=== PATIENT | male | born 1955 | race Caucasian/White ===

== ENCOUNTER 2016-09-11 09:36 | Day surgery (SDC) | payer MEDICARE, OTHER ==
[~2016-09-11] VITALS: Ht 165.1 cm; Wt 90.7 kg
[~2016-09-11 09:36] MED LIST: AMLO1CAP2 PO; ASPI-1035 PO; CINA30 PO; CLOP75TA33 PO; HYDR25TA PO; INSULIN PUMP SUBCUT; LOSA100T14 PO; MULT-1146 PO; SEVE800T8 PO; SIMV10TA6 PO; SODI650T PO; [UNRECOGNIZED DRUG - OTHER] PO
[2016-09-11] MEDS ORDERED: PARI1CAP PO (10:47)
[2016-09-11] MEDS ORDERED: GLIM2TAB2 PO (10:47)
[2016-09-11] MEDS ORDERED: FENTANYL CITRATE/PF 50MCG/ML 2ML VIAL ONE (11:50)
[2016-09-11] MEDS ORDERED: MIDAZOLAM HCL 2 MG/2 ML VIAL ONE (11:50)
[2016-09-11] MEDS ORDERED: LIDOCAINE HCL 1% 20ML VIAL (Pyxis) INJ ONE (11:51)
[2016-09-11] MEDS ORDERED: IOHEXOL-300 100 ML BOTTLE ONE (11:52)
== END 2016-09-11 17:15 | disposition home or self-care (01) ==
LOC: CCL 09:36
PROVIDERS: ATTEND Specialist
DX: I25.10 Atherosclerotic heart disease of native coronary artery without angina pectoris (principal); I35.0 Nonrheumatic aortic (valve) stenosis; I12.0 Hypertensive chronic kidney disease with stage 5 chronic kidney disease or end stage renal disease; N18.9 Chronic kidney disease, unspecified; E11.9 Type 2 diabetes mellitus without complications; E78.5 Hyperlipidemia, unspecified; I21.3 ST elevation (STEMI) myocardial infarction of unspecified site
CPT/HCPCS: 82962; 93458; C1760; C1769; C1887; C1893; J1644; J2250; J3010; J3490; Q9967

== ENCOUNTER 2017-07-16 06:33 | Day surgery (SDC) | payer MEDICARE, OTHER ==
[~2017-07-16] VITALS: Ht 167.6 cm; Wt 81.6 kg
[~2017-07-16 06:33] MED LIST changes: -ASPI-1035 PO; +ASPI-1159 PO; +GLIM2TAB2 PO; +PARI1CAP PO
[2017-07-16] MEDS ORDERED: IODIXANOL 320MG/ML 100 ML BOTTLE IV ONE (08:31)
[2017-07-16] MEDS ORDERED: MIDAZOLAM HCL 2 MG/2 ML VIAL ONE (08:31)
[2017-07-16] MEDS ORDERED: FENTANYL CITRATE/PF 50MCG/ML 2ML VIAL ONE (08:31)
[2017-07-16] MEDS ORDERED: LIDOCAINE HCL 1% 20ML VIAL (Pyxis) INJ ONE (08:32)
[2017-07-16] MEDS ORDERED: NUT.237L82 PO (08:46)
[2017-07-16] MEDS ORDERED: SIME125C PO (08:46)
[2017-07-16] MEDS ORDERED: HYDR100T26 PO (08:46)
[2017-07-16] MEDS ORDERED: AMIO100T4 PO (08:46)
[2017-07-16] MEDS ORDERED: SUCR1TAB30 PO (08:46)
[2017-07-16] MEDS ORDERED: FURO80TA3 PO (08:46)
[2017-07-16] MEDS ORDERED: LIRA0.6P2 SUBCUT (08:46)
[2017-07-16] MEDS ORDERED: MULT1TAB63 PO (08:46)
[2017-07-16] MEDS ORDERED: PANT40TA4 PO (08:46)
[2017-07-16] MEDS ORDERED: ATROPINE SULFATE 1MG/10ML SYR IV PRN (09:30)
[2017-07-16] MEDS ORDERED: ACETAMINOPHEN 325MG TABLET PO PRN (09:30)
[2017-07-16] MEDS ORDERED: ONDANSETRON HCL 4MG/2ML VIAL IV PRN (09:30)
[2017-07-16] MEDS ORDERED: MORPHINE SULFATE 4 MG/ML CPJ (NOT FOR IM USE) IV PRN (09:45)
[2017-07-16] MEDS ORDERED: NITROGLYCERIN 50MCG/ML 10ML VIAL (CATH LAB) IV ONE (13:52)
[2017-07-16] MEDS ORDERED: NICARDIPINE 100MCG/ML 10ML VIAL (CATH LAB) IV ONE (13:52)
[2017-07-16] MEDS ORDERED: HEPARIN SODIUM 1,000 UNIT/1ML VIAL IV ONE (13:52)
== END 2017-07-16 15:15 | disposition home or self-care (01) ==
LOC: CCL 06:33
PROVIDERS: ATTEND Specialist
DX: I25.810 Atherosclerosis of coronary artery bypass graft(s) without angina pectoris (principal); Z95.2 Presence of prosthetic heart valve; Z95.1 Presence of aortocoronary bypass graft; I47.2 Ventricular tachycardia
CPT/HCPCS: 36415; 82962; 84132; 93455; 99152; 99153; C1760; C1769; C1887; C1893; J1644; J2250; J3010; J3490; Q9967

== ENCOUNTER 2018-04-22 23:00 | Inpatient (IN) | payer MEDICARE, OTHER ==
[~2018-04-22] VITALS: Ht 167.6 cm; Wt 64.5 kg
[2018-04-22 23:00] VITALS: BP 155/79
[~2018-04-22 23:00] MED LIST changes: +AMIO100T4 PO; -CINA30 PO; +FURO80TA3 PO; +MULT1TAB63 PO; +NUT.237L82 PO; +PANT40TA4 PO; -PARI1CAP PO; +SIME125C PO; +SUCR1TAB30 PO
[2018-04-22 23:10] VITALS: BP 155/79
[2018-04-23] MEDS ORDERED: CEFTRIAXONE 2 G PREMIX 50 ML IV SCH (00:30)
[2018-04-23] MEDS ORDERED: ENOXAPARIN 30MG/0.3ML SYR SUBCUT SCH (00:30)
[2018-04-23] MEDS ORDERED: IPRATROPIUM/ALBUTEROL 0.5-3(2.5)MG/3ML NEB HHN PRN ×2 (00:30)
[2018-04-23] MEDS ORDERED: GUAIFENESIN 200MG/10ML SUGAR FREE UDC PO PRN (00:30)
[2018-04-23] MEDS ORDERED: ONDANSETRON HCL 4MG/2ML INJ IV PRN (00:30)
[2018-04-23] MEDS ORDERED: ACETAMINOPHEN 325MG TABLET PO PRN (00:30)
[2018-04-23] MEDS ORDERED: DEXTROSE 50% WATER 50ML SYRINGE IV PRN (00:30)
[2018-04-23] MEDS ORDERED: METRONIDAZOLE 500MG TABLET PO SCH (01:40)
[2018-04-23] MEDS ORDERED: SODIUM CHLORIDE 0.9% 1,000 ML IV SCH (01:50)
[2018-04-23] MEDS ORDERED: CEFTRIAXONE 2 G in SODIUM CHLORIDE 0.9% 50 ML IV SCH (03:00)
[2018-04-23] MEDS: METOCLOPRAMIDE HCL 10MG/2ML VIAL IV SCH ×3 (05:53→18:14)
[2018-04-23] MEDS: BLOOD SUGAR DIAGNOSTIC STRIP TEST SCH ×4 (05:55→21:00)
[2018-04-23 07:28] LABS: HEMOGLOBIN. 10.3 g/dL (14.0-18.0); MEAN CORPUSCULAR VOLUME 93.3 fL (80.0-94.0); MEAN PLATELET VOLUME 8.2 fl (7.4-10.4); PLATELET 167 x1000/uL (130-400); RED BLOOD CELL COUNT 3.43 mill/uL (4.7-6.1); RED CELL DISTRIBUTION WIDTH 17.7 % (11.6-14.6)
[2018-04-23] MEDS: IPRATROPIUM/ALBUTEROL 0.5-3(2.5)MG/3ML NEB HHN SCH ×3 (07:33→21:34)
[2018-04-23 07:40] LABS: CHLORIDE 101 mEq/L (98-107)
[2018-04-23 08:00] VITALS: BP 156/78
[2018-04-23] MEDS: SEVELAMER CARBONATE 800 MG TABLET PO SCH ×3 (08:59→18:13)
[2018-04-23] MEDS: FOLIC ACID/VITAMIN B COMP W-C TABLET PO SCH (08:59)
[2018-04-23] MEDS: PANTOPRAZOLE SODIUM 40 MG/VIAL IV SCH (08:59)
[2018-04-23] MEDS: CLOPIDOGREL 75MG TABLET PO SCH (09:00)
[2018-04-23] MEDS: ASPIRIN 81MG TABLET PO SCH (09:00)
[2018-04-23] MEDS ORDERED: AMLODIPINE 5MG TABLET PO SCH (09:00)
[2018-04-23] MEDS: INSULIN LISPRO 100 UNITS/ML SUBCUT SCH ×4 (09:00→21:00)
[2018-04-23] MEDS: METRONIDAZOLE 500MG TABLET PO SCH (09:01)
[2018-04-23] MEDS: ENOXAPARIN 30MG/0.3ML SYR SUBCUT SCH (09:42)
[2018-04-23 13:50] LABS: PLATELET ESTIMATE NORMAL
[2018-04-23 16:33] LABS: TOTAL IRON BINDING CAPACITY 175 ug/dL (250-450)
[2018-04-23] MEDS: DOCUSATE SODIUM 100MG CAPSULE PO SCH (18:13)
[2018-04-23] MEDS: CINACALCET HCL 30MG TABLET PO SCH (18:13)
[2018-04-23] MEDS ORDERED: BISACODYL 5MG TABLET PO PRN (18:45)
[2018-04-23 20:00] VITALS: BP 153/78
[2018-04-23 20:48] LABS: FOLIC ACID (FOLATE) SERUM >20 ng/mL ng/mL (>5.38)
[2018-04-23 20:50] LABS: FERRITIN 1095 ng/mL (22-322)
[2018-04-23 20:59] LABS: VITAMIN B12 SERUM 1798 pg/mL (211-911)
[2018-04-23] MEDS: AMLODIPINE 5MG TABLET PO SCH (21:52)
[2018-04-24] MEDS: POLYETHYLENE GLYCOL 3350 (17GM) 1 DOSE PACK PO SCH ×2 (00:01→20:24)
[2018-04-24] MEDS: CEFTRIAXONE 2 G in DEXTROSE 5% WATER 50 ML IV SCH ×2 (00:01→20:25)
[2018-04-24] MEDS: ATORVASTATIN CALCIUM 10MG TABLET PO SCH ×2 (00:02→20:24)
[2018-04-24] MEDS: METOCLOPRAMIDE HCL 10MG/2ML VIAL IV SCH ×5 (00:03→20:24)
[2018-04-24] MEDS: METRONIDAZOLE 500MG TABLET PO SCH ×3 (00:03→20:24)
[2018-04-24] MEDS: IPRATROPIUM/ALBUTEROL 0.5-3(2.5)MG/3ML NEB HHN SCH ×4 (02:26→21:04)
[2018-04-24] MEDS: BLOOD SUGAR DIAGNOSTIC STRIP TEST SCH ×4 (06:57→20:34)
[2018-04-24 08:00] VITALS: BP 152/48
[2018-04-24] MEDS ORDERED: ASCORBIC ACID 250 MG TABLET PO SCH (09:00)
[2018-04-24] MEDS: ENOXAPARIN 30MG/0.3ML SYR SUBCUT SCH (09:35)
[2018-04-24] MEDS: SEVELAMER CARBONATE 800 MG TABLET PO SCH ×3 (09:35→17:28)
[2018-04-24] MEDS: ZINC SULFATE 220 MG ( 50 ) CAPSULE PO SCH (09:36)
[2018-04-24] MEDS: CLOPIDOGREL 75MG TABLET PO SCH (09:36)
[2018-04-24] MEDS: PANTOPRAZOLE SODIUM 40 MG/VIAL IV SCH (09:36)
[2018-04-24] MEDS: FOLIC ACID/VITAMIN B COMP W-C TABLET PO SCH (09:36)
[2018-04-24] MEDS: DOCUSATE SODIUM 100MG CAPSULE PO SCH ×2 (09:36→17:29)
[2018-04-24] MEDS: ASPIRIN 81MG TABLET PO SCH (09:36)
[2018-04-24] MEDS: FUROSEMIDE 80MG TABLET PO SCH (09:37)
[2018-04-24] MEDS: AMLODIPINE 5MG TABLET PO SCH ×2 (09:37→20:24)
[2018-04-24] MEDS: CINACALCET HCL 30MG TABLET PO SCH (17:29)
[2018-04-24] MEDS: LACTULOSE 20G/30ML UDC PO SCH (17:29)
[2018-04-24 20:00] VITALS: BP 133/68
[2018-04-24] MEDS ORDERED: EPOETIN ALFA 4000UNITS/ML VIAL SUBCUT SCH (21:00)
[2018-04-25] MEDS: IPRATROPIUM/ALBUTEROL 0.5-3(2.5)MG/3ML NEB HHN SCH ×2 (02:31→20:53)
[2018-04-25] MEDS: METOCLOPRAMIDE HCL 10MG/2ML VIAL IV SCH ×4 (05:46→22:52)
[2018-04-25] MEDS: BLOOD SUGAR DIAGNOSTIC STRIP TEST SCH ×4 (06:21→21:00)
[2018-04-25 08:00] VITALS: BP 165/80
[2018-04-25] MEDS: SEVELAMER CARBONATE 800 MG TABLET PO SCH ×3 (09:14→16:44)
[2018-04-25] MEDS: LACTULOSE 20G/30ML UDC PO SCH (09:14)
[2018-04-25] MEDS: PANTOPRAZOLE SODIUM 40 MG/VIAL IV SCH (09:14)
[2018-04-25] MEDS: ASPIRIN 81MG TABLET PO SCH (09:15)
[2018-04-25] MEDS: FUROSEMIDE 80MG TABLET PO SCH (09:15)
[2018-04-25] MEDS: DOCUSATE SODIUM 100MG CAPSULE PO SCH ×2 (09:15→16:44)
[2018-04-25] MEDS: AMLODIPINE 5MG TABLET PO SCH ×2 (09:15→22:53)
[2018-04-25] MEDS: FOLIC ACID/VITAMIN B COMP W-C TABLET PO SCH (09:15)
[2018-04-25] MEDS: ENOXAPARIN 30MG/0.3ML SYR SUBCUT SCH (09:15)
[2018-04-25] MEDS: CLOPIDOGREL 75MG TABLET PO SCH (09:15)
[2018-04-25] MEDS: ZINC SULFATE 220 MG ( 50 ) CAPSULE PO SCH (09:15)
[2018-04-25] MEDS: CINACALCET HCL 30MG TABLET PO SCH (16:44)
[2018-04-25 20:00] VITALS: BP 120/67
[2018-04-25] MEDS: POLYETHYLENE GLYCOL 3350 (17GM) 1 DOSE PACK PO SCH (21:00)
[2018-04-25] MEDS: CEFTRIAXONE 2 G in DEXTROSE 5% WATER 50 ML IV SCH (22:52)
[2018-04-25] MEDS: ATORVASTATIN CALCIUM 10MG TABLET PO SCH (22:53)
[2018-04-26] MEDS: IPRATROPIUM/ALBUTEROL 0.5-3(2.5)MG/3ML NEB HHN SCH ×4 (01:50→21:00)
[2018-04-26] MEDS: BLOOD SUGAR DIAGNOSTIC STRIP TEST SCH ×4 (05:57→21:00)
[2018-04-26] MEDS: METOCLOPRAMIDE HCL 10MG/2ML VIAL IV SCH ×4 (05:58→23:55)
[2018-04-26 07:03] LABS: HEMATOCRIT. 31.2 % (42.0-52.0); HEMOGLOBIN. 10.1 g/dL (14.0-18.0); MEAN CORPUSCULAR HEMOGLOBIN 30.2 pg (28.0-32.0); MEAN CORPUSCULAR VOLUME 93.2 fL (80.0-94.0); MEAN PLATELET VOLUME 8.2 fl (7.4-10.4); PLATELET 191 x1000/uL (130-400); RED BLOOD CELL COUNT 3.35 mill/uL (4.7-6.1); RED CELL DISTRIBUTION WIDTH 17.8 % (11.6-14.6)
[2018-04-26 08:09] VITALS: BP 147/69
[2018-04-26] MEDS: LACTULOSE 20G/30ML UDC PO SCH (09:00)
[2018-04-26] MEDS: ZINC SULFATE 220 MG ( 50 ) CAPSULE PO SCH (09:14)
[2018-04-26] MEDS: ASPIRIN 81MG TABLET PO SCH (09:14)
[2018-04-26] MEDS: DOCUSATE SODIUM 100MG CAPSULE PO SCH ×2 (09:14→17:18)
[2018-04-26] MEDS: CLOPIDOGREL 75MG TABLET PO SCH (09:14)
[2018-04-26] MEDS: SEVELAMER CARBONATE 800 MG TABLET PO SCH ×3 (09:14→17:00)
[2018-04-26] MEDS: FOLIC ACID/VITAMIN B COMP W-C TABLET PO SCH (09:14)
[2018-04-26] MEDS: ENOXAPARIN 30MG/0.3ML SYR SUBCUT SCH (09:14)
[2018-04-26] MEDS: PANTOPRAZOLE SODIUM 40 MG/VIAL IV SCH (09:14)
[2018-04-26] MEDS: AMLODIPINE 5MG TABLET PO SCH ×2 (09:15→21:00)
[2018-04-26 11:09] LABS: PLATELET ESTIMATE NORMAL
[2018-04-26] MEDS: CINACALCET HCL 30MG TABLET PO SCH (17:18)
[2018-04-26 20:00] VITALS: BP 133/55
[2018-04-26] MEDS ORDERED: ZOLPIDEM TARTRATE 5MG TABLET PO PRN (21:00)
[2018-04-26] MEDS: POLYETHYLENE GLYCOL 3350 (17GM) 1 DOSE PACK PO SCH (21:00)
[2018-04-26] MEDS: CEFTRIAXONE 2 G in DEXTROSE 5% WATER 50 ML IV SCH (23:56)
[2018-04-26] MEDS: ATORVASTATIN CALCIUM 10MG TABLET PO SCH (23:56)
[2018-04-27] MEDS: BLOOD SUGAR DIAGNOSTIC STRIP TEST SCH ×4 (07:06→20:59)
[2018-04-27] MEDS: METOCLOPRAMIDE HCL 10MG/2ML VIAL IV SCH ×4 (07:06→20:55)
[2018-04-27 08:00] VITALS: BP 131/68
[2018-04-27] MEDS: ZINC SULFATE 220 MG ( 50 ) CAPSULE PO SCH (08:45)
[2018-04-27] MEDS: CLOPIDOGREL 75MG TABLET PO SCH (08:45)
[2018-04-27] MEDS: DOCUSATE SODIUM 100MG CAPSULE PO SCH ×2 (08:45→16:10)
[2018-04-27] MEDS: FOLIC ACID/VITAMIN B COMP W-C TABLET PO SCH (08:45)
[2018-04-27] MEDS: FUROSEMIDE 80MG TABLET PO SCH (08:45)
[2018-04-27] MEDS: ASPIRIN 81MG TABLET PO SCH (08:45)
[2018-04-27] MEDS: ENOXAPARIN 30MG/0.3ML SYR SUBCUT SCH (08:46)
[2018-04-27] MEDS: AMLODIPINE 5MG TABLET PO SCH ×2 (08:46→20:56)
[2018-04-27] MEDS: FAMOTIDINE 20MG TABLET PO SCH (08:46)
[2018-04-27] MEDS: LACTULOSE 20G/30ML UDC PO SCH (09:00)
[2018-04-27] MEDS: IPRATROPIUM/ALBUTEROL 0.5-3(2.5)MG/3ML NEB HHN SCH ×4 (09:49→21:30)
[2018-04-27 13:42] LABS: HEMOGLOBIN. 10.2 g/dL (14.0-18.0); MEAN CORPUSCULAR HEMOGLOBIN 30.4 pg (28.0-32.0); MEAN CORPUSCULAR VOLUME 92.6 fL (80.0-94.0); PLATELET 192 x1000/uL (130-400); RED BLOOD CELL COUNT 3.35 mill/uL (4.7-6.1); RED CELL DISTRIBUTION WIDTH 17.7 % (11.6-14.6)
[2018-04-27 14:03] LABS: PLATELET ESTIMATE NORMAL
[2018-04-27] MEDS: CINACALCET HCL 30MG TABLET PO SCH (16:10)
[2018-04-27 20:00] VITALS: BP 137/68
[2018-04-27] MEDS: ATORVASTATIN CALCIUM 10MG TABLET PO SCH (20:55)
[2018-04-27] MEDS: CEFTRIAXONE 2 G in DEXTROSE 5% WATER 50 ML IV SCH (20:55)
[2018-04-27] MEDS: POLYETHYLENE GLYCOL 3350 (17GM) 1 DOSE PACK PO SCH (20:56)
[2018-04-28] MEDS: IPRATROPIUM/ALBUTEROL 0.5-3(2.5)MG/3ML NEB HHN SCH ×2 (02:05→10:05)
[2018-04-28] MEDS: METOCLOPRAMIDE HCL 10MG/2ML VIAL IV SCH ×2 (05:57→11:10)
[2018-04-28] MEDS: BLOOD SUGAR DIAGNOSTIC STRIP TEST SCH ×4 (05:57→21:00)
[2018-04-28 07:05] LABS: PHOSPHORUS 4.7 mg/dL (2.5-4.9)
[2018-04-28 08:32] VITALS: BP 116/65
[2018-04-28] MEDS: ZINC SULFATE 220 MG ( 50 ) CAPSULE PO SCH (08:42)
[2018-04-28] MEDS: FAMOTIDINE 20MG TABLET PO SCH (08:42)
[2018-04-28] MEDS: CLOPIDOGREL 75MG TABLET PO SCH (08:42)
[2018-04-28] MEDS: ASPIRIN 81MG TABLET PO SCH (08:43)
[2018-04-28] MEDS: DOCUSATE SODIUM 100MG CAPSULE PO SCH ×2 (08:43→16:52)
[2018-04-28] MEDS: FOLIC ACID/VITAMIN B COMP W-C TABLET PO SCH (08:43)
[2018-04-28] MEDS: AMLODIPINE 5MG TABLET PO SCH ×2 (08:43→23:28)
[2018-04-28] MEDS: ENOXAPARIN 30MG/0.3ML SYR SUBCUT SCH (08:45)
[2018-04-28] MEDS: LACTULOSE 20G/30ML UDC PO SCH (08:48)
[2018-04-28] MEDS: MEGESTROL ACETATE 400 MG/10 ML UDC PO SCH (13:56)
[2018-04-28 15:13] LABS: HEMATOCRIT. 29.6 % (42.0-52.0); HEMOGLOBIN. 9.6 g/dL (14.0-18.0); MEAN CORPUSCULAR HEMOGLOBIN 30.2 pg (28.0-32.0); MEAN CORPUSCULAR VOLUME 92.7 fL (80.0-94.0); MEAN PLATELET VOLUME 8.2 fl (7.4-10.4); PLATELET 166 x1000/uL (130-400); RED CELL DISTRIBUTION WIDTH 17.8 % (11.6-14.6)
[2018-04-28 15:25] LABS: CHLORIDE 99 mEq/L (98-107)
[2018-04-28 15:30] LABS: PHOSPHORUS 4.5 mg/dL (2.5-4.9)
[2018-04-28 15:59] LABS: PLATELET ESTIMATE NORMAL
[2018-04-28] MEDS: CINACALCET HCL 30MG TABLET PO SCH (16:52)
[2018-04-28 20:00] VITALS: BP 146/68
[2018-04-28] MEDS: EPOETIN ALFA 4000UNITS/ML VIAL SUBCUT SCH (23:26)
[2018-04-28] MEDS: POLYETHYLENE GLYCOL 3350 (17GM) 1 DOSE PACK PO SCH (23:26)
[2018-04-28] MEDS: CEFTRIAXONE 2 G in DEXTROSE 5% WATER 50 ML IV SCH (23:26)
[2018-04-28] MEDS: ATORVASTATIN CALCIUM 10MG TABLET PO SCH (23:26)
[2018-04-29] MEDS: IPRATROPIUM/ALBUTEROL 0.5-3(2.5)MG/3ML NEB HHN SCH ×4 (01:31→21:20)
[2018-04-29] MEDS: BLOOD SUGAR DIAGNOSTIC STRIP TEST SCH ×4 (06:00→20:48)
[2018-04-29 08:00] VITALS: BP 136/70
[2018-04-29 09:33] VITALS: BP 131/64
[2018-04-29] MEDS ORDERED: LACTULOSE 20G/30ML UDC PO NR (10:15)
[2018-04-29] MEDS: FAMOTIDINE 20MG TABLET PO SCH (10:32)
[2018-04-29] MEDS: FOLIC ACID/VITAMIN B COMP W-C TABLET PO SCH (10:32)
[2018-04-29] MEDS: CLOPIDOGREL 75MG TABLET PO SCH (10:32)
[2018-04-29] MEDS: ASPIRIN 81MG TABLET PO SCH (10:32)
[2018-04-29] MEDS: ZINC SULFATE 220 MG ( 50 ) CAPSULE PO SCH (10:32)
[2018-04-29] MEDS: DOCUSATE SODIUM 100MG CAPSULE PO SCH ×2 (10:33→18:06)
[2018-04-29] MEDS: FUROSEMIDE 80MG TABLET PO SCH (10:33)
[2018-04-29] MEDS: MEGESTROL ACETATE 400 MG/10 ML UDC PO SCH (10:33)
[2018-04-29 10:50] VITALS: BP 154/67
[2018-04-29] MEDS: AMLODIPINE 5MG TABLET PO SCH ×2 (10:50→20:43)
[2018-04-29] MEDS: ENOXAPARIN 30MG/0.3ML SYR SUBCUT SCH (10:51)
[2018-04-29] MEDS: LACTULOSE 20G/30ML UDC PO SCH ×3 (10:55→21:43)
[2018-04-29 13:13] LABS: T4 FREE 1.05 ng/dL (0.76-1.46)
[2018-04-29 15:09] LABS: VITAMIN B12 SERUM 1918 pg/mL (211-911)
[2018-04-29 15:17] LABS: FOLIC ACID (FOLATE) SERUM > 20.00 ng/mL (>5.38)
[2018-04-29] MEDS: FOLIC ACID 1MG TABLET PO SCH (15:35)
[2018-04-29] MEDS: MULTIVITAMINS,THER W-MINERALS TABLET PO SCH (15:35)
[2018-04-29] MEDS: THIAMINE HCL 100MG TABLET PO SCH (15:35)
[2018-04-29] MEDS: CINACALCET HCL 30MG TABLET PO SCH (18:06)
[2018-04-29 20:00] VITALS: BP 157/22
[2018-04-29] MEDS: METRONIDAZOLE 500MG TABLET PO SCH (20:43)
[2018-04-29] MEDS: ASCORBIC ACID 250 MG TABLET PO SCH (20:43)
[2018-04-29] MEDS: POLYETHYLENE GLYCOL 3350 (17GM) 1 DOSE PACK PO SCH (20:43)
[2018-04-29] MEDS: CEFTRIAXONE 2 G in DEXTROSE 5% WATER 50 ML IV SCH (20:43)
[2018-04-29] MEDS: ATORVASTATIN CALCIUM 10MG TABLET PO SCH (20:43)
[2018-04-30] MEDS: IPRATROPIUM/ALBUTEROL 0.5-3(2.5)MG/3ML NEB HHN SCH ×3 (01:12→19:53)
[2018-04-30] MEDS: LACTULOSE 20G/30ML UDC PO SCH ×2 (05:39→13:50)
[2018-04-30] MEDS: BLOOD SUGAR DIAGNOSTIC STRIP TEST SCH ×4 (05:44→20:56)
[2018-04-30 08:06] VITALS: BP 127/63
[2018-04-30 08:44] LABS: HEMOGLOBIN. 9.9 g/dL (14.0-18.0); MEAN CORPUSCULAR HEMOGLOBIN 30.4 pg (28.0-32.0); MEAN CORPUSCULAR VOLUME 92.3 fL (80.0-94.0); MEAN PLATELET VOLUME 8.6 fl (7.4-10.4); PLATELET 127 x1000/uL (130-400); RED BLOOD CELL COUNT 3.25 mill/uL (4.7-6.1); RED CELL DISTRIBUTION WIDTH 17.9 % (11.6-14.6)
[2018-04-30] MEDS: FAMOTIDINE 20MG TABLET PO SCH (08:54)
[2018-04-30] MEDS: ASCORBIC ACID 250 MG TABLET PO SCH ×2 (08:54→20:54)
[2018-04-30] MEDS: ZINC SULFATE 220 MG ( 50 ) CAPSULE PO SCH (08:54)
[2018-04-30] MEDS: FOLIC ACID 1MG TABLET PO SCH (08:54)
[2018-04-30] MEDS: DOCUSATE SODIUM 100MG CAPSULE PO SCH ×2 (08:54→16:50)
[2018-04-30] MEDS: FOLIC ACID/VITAMIN B COMP W-C TABLET PO SCH (08:54)
[2018-04-30] MEDS: MEGESTROL ACETATE 400 MG/10 ML UDC PO SCH (08:54)
[2018-04-30] MEDS: MULTIVITAMINS,THER W-MINERALS TABLET PO SCH (08:55)
[2018-04-30] MEDS: METRONIDAZOLE 500MG TABLET PO SCH ×2 (08:55→20:54)
[2018-04-30] MEDS: THIAMINE HCL 100MG TABLET PO SCH (08:55)
[2018-04-30] MEDS: AMLODIPINE 5MG TABLET PO SCH ×2 (09:00→20:57)
[2018-04-30] MEDS: ENOXAPARIN 30MG/0.3ML SYR SUBCUT SCH (09:00)
[2018-04-30] MEDS: ASPIRIN 81MG TABLET PO SCH (09:00)
[2018-04-30] MEDS: CLOPIDOGREL 75MG TABLET PO SCH (09:00)
[2018-04-30 09:23] LABS: PHOSPHORUS 4.6 mg/dL (2.5-4.9)
[2018-04-30 10:43] LABS: PLATELET ESTIMATE SLIGHTLY DECREASED
[2018-04-30] MEDS: CINACALCET HCL 30MG TABLET PO SCH (16:51)
[2018-04-30 17:06] LABS: 25-HYDROXY VITAMIN D3 33 ng/mL (.)
[2018-04-30] MEDS: ATORVASTATIN CALCIUM 10MG TABLET PO SCH (20:54)
[2018-04-30] MEDS: POLYETHYLENE GLYCOL 3350 (17GM) 1 DOSE PACK PO SCH (20:55)
[2018-04-30] MEDS: EPOETIN ALFA 4000UNITS/ML VIAL SUBCUT SCH (20:56)
[2018-05-01] MEDS: IPRATROPIUM/ALBUTEROL 0.5-3(2.5)MG/3ML NEB HHN SCH ×4 (01:44→20:54)
[2018-05-01 08:02] VITALS: BP 135/72
[2018-05-01] MEDS: METRONIDAZOLE 500MG TABLET PO SCH ×2 (08:29→21:28)
[2018-05-01] MEDS: FUROSEMIDE 80MG TABLET PO SCH (08:30)
[2018-05-01] MEDS: DOCUSATE SODIUM 100MG CAPSULE PO SCH ×2 (08:30→16:31)
[2018-05-01] MEDS: AMLODIPINE 5MG TABLET PO SCH ×2 (08:30→21:00)
[2018-05-01] MEDS: FAMOTIDINE 20MG TABLET PO SCH (08:30)
[2018-05-01] MEDS: MULTIVITAMINS,THER W-MINERALS TABLET PO SCH (08:30)
[2018-05-01] MEDS: ASPIRIN 81MG TABLET PO SCH (08:30)
[2018-05-01] MEDS: ZINC SULFATE 220 MG ( 50 ) CAPSULE PO SCH (08:31)
[2018-05-01] MEDS: CLOPIDOGREL 75MG TABLET PO SCH (08:31)
[2018-05-01] MEDS: ASCORBIC ACID 250 MG TABLET PO SCH ×3 (08:31→21:28)
[2018-05-01] MEDS: MEGESTROL ACETATE 400 MG/10 ML UDC PO SCH (08:31)
[2018-05-01] MEDS: FOLIC ACID/VITAMIN B COMP W-C TABLET PO SCH (08:31)
[2018-05-01] MEDS: THIAMINE HCL 100MG TABLET PO SCH (08:31)
[2018-05-01] MEDS: ENOXAPARIN 30MG/0.3ML SYR SUBCUT SCH (08:32)
[2018-05-01] MEDS: LACTULOSE 20G/30ML UDC PO SCH (08:33)
[2018-05-01] MEDS ORDERED: ERGOCALCIFEROL 50000UNITS CAPSULE PO SCH (10:15)
[2018-05-01] MEDS: FOLIC ACID 1MG TABLET PO SCH (10:24)
[2018-05-01] MEDS: BLOOD SUGAR DIAGNOSTIC STRIP TEST SCH ×4 (11:00→21:30)
[2018-05-01] MEDS ORDERED: CEFTRIAXONE 2 G PREMIX 50 ML IV SCH (14:30)
[2018-05-01] MEDS: CEFTRIAXONE 2 G in DEXTROSE 5% WATER 50 ML IV SCH (15:56)
[2018-05-01] MEDS ORDERED: CEFTRIAXONE 2 G in DEXT 5% WATER 100 ML IV SCH (16:00)
[2018-05-01] MEDS: CINACALCET HCL 30MG TABLET PO SCH (16:31)
[2018-05-01 20:05] VITALS: BP 112/39
[2018-05-01] MEDS: POLYETHYLENE GLYCOL 3350 (17GM) 1 DOSE PACK PO SCH (21:00)
[2018-05-01] MEDS: ATORVASTATIN CALCIUM 10MG TABLET PO SCH ×2 (21:00→21:28)
[2018-05-01] MEDS: MIRTAZAPINE 15MG TABLET PO SCH (21:00)
[2018-05-01] MEDS ORDERED: RISPERIDONE 0.25MG TABLET PO SCH (21:00)
[2018-05-02] MEDS: IPRATROPIUM/ALBUTEROL 0.5-3(2.5)MG/3ML NEB HHN SCH ×4 (02:14→21:37)
[2018-05-02 07:07] LABS: HEMATOCRIT. 30.9 % (42.0-52.0); HEMOGLOBIN. 9.8 g/dL (14.0-18.0); MEAN CORPUSCULAR VOLUME 94.2 fL (80.0-94.0); MEAN PLATELET VOLUME 8.6 fl (7.4-10.4); PLATELET 123 x1000/uL (130-400); RED BLOOD CELL COUNT 3.28 mill/uL (4.7-6.1); RED CELL DISTRIBUTION WIDTH 18.3 % (11.6-14.6)
[2018-05-02 08:00] VITALS: BP 108/78
[2018-05-02] MEDS: AMLODIPINE 5MG TABLET PO SCH ×2 (09:00→22:29)
[2018-05-02] MEDS: LACTULOSE 20G/30ML UDC PO SCH (09:00)
[2018-05-02 09:11] LABS: PLATELET ESTIMATE SLIGHTLY DECREASED
[2018-05-02] MEDS: CLOPIDOGREL 75MG TABLET PO SCH (09:47)
[2018-05-02] MEDS: THIAMINE HCL 100MG TABLET PO SCH (09:47)
[2018-05-02] MEDS: ASPIRIN 81MG TABLET PO SCH (09:48)
[2018-05-02] MEDS: MULTIVITAMINS,THER W-MINERALS TABLET PO SCH (09:48)
[2018-05-02] MEDS: FAMOTIDINE 20MG TABLET PO SCH (09:48)
[2018-05-02] MEDS: FUROSEMIDE 80MG TABLET PO SCH (09:48)
[2018-05-02] MEDS: METRONIDAZOLE 500MG TABLET PO SCH ×2 (09:48→22:29)
[2018-05-02] MEDS: ASCORBIC ACID 250 MG TABLET PO SCH ×2 (09:49→22:29)
[2018-05-02] MEDS: FOLIC ACID 1MG TABLET PO SCH (09:49)
[2018-05-02] MEDS: ZINC SULFATE 220 MG ( 50 ) CAPSULE PO SCH (09:49)
[2018-05-02] MEDS: FOLIC ACID/VITAMIN B COMP W-C TABLET PO SCH (09:49)
[2018-05-02] MEDS: DOCUSATE SODIUM 100MG CAPSULE PO SCH ×2 (09:49→16:25)
[2018-05-02] MEDS: ENOXAPARIN 30MG/0.3ML SYR SUBCUT SCH (09:53)
[2018-05-02] MEDS: BLOOD SUGAR DIAGNOSTIC STRIP TEST SCH ×3 (11:53→21:00)
[2018-05-02] MEDS: CEFTRIAXONE 2 G in DEXTROSE 5% WATER 50 ML IV SCH (16:25)
[2018-05-02] MEDS: CINACALCET HCL 30MG TABLET PO SCH (16:25)
[2018-05-02 20:00] VITALS: BP 141/72
[2018-05-02] MEDS: ATORVASTATIN CALCIUM 10MG TABLET PO SCH (22:29)
[2018-05-02] MEDS: MIRTAZAPINE 15MG TABLET PO SCH (22:29)
[2018-05-02] MEDS: POLYETHYLENE GLYCOL 3350 (17GM) 1 DOSE PACK PO SCH (22:33)
[2018-05-03] MEDS: IPRATROPIUM/ALBUTEROL 0.5-3(2.5)MG/3ML NEB HHN SCH ×3 (03:08→21:42)
[2018-05-03] MEDS: BLOOD SUGAR DIAGNOSTIC STRIP TEST SCH ×4 (06:19→21:00)
[2018-05-03 07:13] LABS: HEMATOCRIT. 31.6 % (42.0-52.0); HEMOGLOBIN. 10.2 g/dL (14.0-18.0); MEAN CORPUSCULAR HEMOGLOBIN 30.8 pg (28.0-32.0); MEAN CORPUSCULAR VOLUME 95.3 fL (80.0-94.0); MEAN PLATELET VOLUME 8.8 fl (7.4-10.4); PLATELET 127 x1000/uL (130-400); RED BLOOD CELL COUNT 3.31 mill/uL (4.7-6.1)
[2018-05-03 08:03] VITALS: BP 114/68
[2018-05-03] MEDS: LACTULOSE 20G/30ML UDC PO SCH (09:00)
[2018-05-03] MEDS: AMLODIPINE 5MG TABLET PO SCH ×2 (09:00→21:00)
[2018-05-03] MEDS: FOLIC ACID/VITAMIN B COMP W-C TABLET PO SCH (09:48)
[2018-05-03] MEDS: CLOPIDOGREL 75MG TABLET PO SCH (09:48)
[2018-05-03] MEDS: DOCUSATE SODIUM 100MG CAPSULE PO SCH ×2 (09:48→17:00)
[2018-05-03] MEDS: ASPIRIN 81MG TABLET PO SCH (09:48)
[2018-05-03] MEDS: MULTIVITAMINS,THER W-MINERALS TABLET PO SCH (09:48)
[2018-05-03] MEDS: METRONIDAZOLE 500MG TABLET PO SCH ×2 (09:48→22:15)
[2018-05-03] MEDS: FOLIC ACID 1MG TABLET PO SCH (09:48)
[2018-05-03] MEDS: FAMOTIDINE 20MG TABLET PO SCH (09:49)
[2018-05-03] MEDS: THIAMINE HCL 100MG TABLET PO SCH (09:49)
[2018-05-03] MEDS: ASCORBIC ACID 250 MG TABLET PO SCH ×2 (09:49→21:00)
[2018-05-03] MEDS: ENOXAPARIN 30MG/0.3ML SYR SUBCUT SCH (09:49)
[2018-05-03] MEDS: ZINC SULFATE 220 MG ( 50 ) CAPSULE PO SCH (09:49)
[2018-05-03 12:19] LABS: BG BASE EXCESS -1.5 mmol/L (-2.0-2.0); BG CARBOXYHEMOGLOBIN 1.2 % (0.5-1.5); BG DEOXYHEMOGLOBIN 26.4 % (0.0-5.0); BG FRACTION INSPIRED OXYGEN 21; BG HCO3 ACT 24.5 mmol/L (22.0-26.0); BG METHEMOGLOBIN 0.3 % (0.0-1.5); BG OXYGEN SATURATION 73.2 % (92.0-98.5); BG OXYHEMOGLOBIN 72.1 % (94.0-97.0); BG PCO2 47.2 mmHg (35.0-45.0); BG PH 7.333 (7.350-7.450); BG PO2 40.6 mmHg (75.0-100.0); BG SAMPLE SITE RIGHT BRACHIAL; BG TOTAL HEMOGLOBIN 10.2 g/dL (12.0-18.0); BG VENT MODE ROOM AIR
[2018-05-03] MEDS ORDERED: LORAZEPAM 2MG/ML CPJ IV PRN (17:30)
[2018-05-03 20:00] VITALS: BP 153/70
[2018-05-03] MEDS: CEFTRIAXONE 2 G in DEXTROSE 5% WATER 50 ML IV SCH (20:12)
[2018-05-03] MEDS: POLYETHYLENE GLYCOL 3350 (17GM) 1 DOSE PACK PO SCH (21:00)
[2018-05-03 21:16] LABS: PLATELET ESTIMATE NORMAL
[2018-05-03] MEDS: ATORVASTATIN CALCIUM 10MG TABLET PO SCH (22:15)
[2018-05-03] MEDS: CINACALCET HCL 30MG TABLET PO SCH (22:15)
[2018-05-03] MEDS: MIRTAZAPINE 15MG TABLET PO SCH (22:16)
[2018-05-04] MEDS: IPRATROPIUM/ALBUTEROL 0.5-3(2.5)MG/3ML NEB HHN SCH ×2 (01:52→09:51)
[2018-05-04] MEDS: BLOOD SUGAR DIAGNOSTIC STRIP TEST SCH ×2 (06:30→11:15)
[2018-05-04 07:58] VITALS: BP 140/56
[2018-05-04] MEDS: LACTULOSE 20G/30ML UDC PO SCH (08:55)
[2018-05-04] MEDS: ENOXAPARIN 30MG/0.3ML SYR SUBCUT SCH (08:55)
[2018-05-04] MEDS: ZINC SULFATE 220 MG ( 50 ) CAPSULE PO SCH (08:55)
[2018-05-04] MEDS: MULTIVITAMINS,THER W-MINERALS TABLET PO SCH (08:55)
[2018-05-04] MEDS: FOLIC ACID/VITAMIN B COMP W-C TABLET PO SCH (08:55)
[2018-05-04] MEDS: FAMOTIDINE 20MG TABLET PO SCH (08:56)
[2018-05-04] MEDS: CLOPIDOGREL 75MG TABLET PO SCH (08:56)
[2018-05-04] MEDS: AMLODIPINE 5MG TABLET PO SCH (08:56)
[2018-05-04] MEDS: METRONIDAZOLE 500MG TABLET PO SCH (08:56)
[2018-05-04] MEDS: FOLIC ACID 1MG TABLET PO SCH (08:56)
[2018-05-04] MEDS: DOCUSATE SODIUM 100MG CAPSULE PO SCH (08:56)
[2018-05-04] MEDS: ASPIRIN 81MG TABLET PO SCH (08:56)
[2018-05-04] MEDS: THIAMINE HCL 100MG TABLET PO SCH (08:56)
[2018-05-04] MEDS: ASCORBIC ACID 250 MG TABLET PO SCH (08:56)
[2018-05-04] MEDS: FUROSEMIDE 80MG TABLET PO SCH (08:57)
[2018-05-04 11:42] VITALS: BP 140/56
== END 2018-05-04 14:35 | disposition home health service (06) | DRG 91 ==
PROVIDERS: ADMIT Physical Medicine & Rehabilitation Spinal Cord Injury Medicine; ATTEND Specialist
PROC: 5A1D70Z Performance of Urinary Filtration, Intermittent, Less than 6 Hours Per Day (ICD-10-PCS; principal; 2018-04-23)
PROC: 5A1D70Z Performance of Urinary Filtration, Intermittent, Less than 6 Hours Per Day (ICD-10-PCS; 2018-04-26)
PROC: 5A1D70Z Performance of Urinary Filtration, Intermittent, Less than 6 Hours Per Day (ICD-10-PCS; 2018-04-28)
PROC: 5A1D70Z Performance of Urinary Filtration, Intermittent, Less than 6 Hours Per Day (ICD-10-PCS; 2018-04-30)
PROC: 5A1D70Z Performance of Urinary Filtration, Intermittent, Less than 6 Hours Per Day (ICD-10-PCS; 2018-05-03)
DX: G92 Toxic encephalopathy (principal); J86.9 Pyothorax without fistula; N18.6 End stage renal disease; E43 Unspecified severe protein-calorie malnutrition; J18.9 Pneumonia, unspecified organism; A40.8 Other streptococcal sepsis; J96.00 Acute respiratory failure, unspecified whether with hypoxia or hypercapnia; I12.0 Hypertensive chronic kidney disease with stage 5 chronic kidney disease or end stage renal disease; J90 Pleural effusion, not elsewhere classified; E87.1 Hypo-osmolality and hyponatremia; R18.8 Other ascites; I48.92 Unspecified atrial flutter; R62.7 Adult failure to thrive; D72.829 Elevated white blood cell count, unspecified; Z99.2 Dependence on renal dialysis; E11.22 Type 2 diabetes mellitus with diabetic chronic kidney disease; Z95.1 Presence of aortocoronary bypass graft; I25.10 Atherosclerotic heart disease of native coronary artery without angina pectoris; Z95.5 Presence of coronary angioplasty implant and graft; E11.649 Type 2 diabetes mellitus with hypoglycemia without coma; Z79.84 Long term (current) use of oral hypoglycemic drugs; K74.60 Unspecified cirrhosis of liver; Z95.3 Presence of xenogenic heart valve; K80.20 Calculus of gallbladder without cholecystitis without obstruction; K42.9 Umbilical hernia without obstruction or gangrene; D64.9 Anemia, unspecified; D69.6 Thrombocytopenia, unspecified; K21.9 Gastro-esophageal reflux disease without esophagitis; I35.0 Nonrheumatic aortic (valve) stenosis; Z88.8 Allergy status to other drugs, medicaments and biological substances; E78.5 Hyperlipidemia, unspecified; I25.2 Old myocardial infarction; R53.81 Other malaise; F32.9 Major depressive disorder, single episode, unspecified; G47.00 Insomnia, unspecified; I48.0 Paroxysmal atrial fibrillation; Z68.22 Body mass index [BMI] 22.0-22.9, adult
CPT/HCPCS: 36415; 36600; 70551; 71045; 80048; 82140; 82306; 82375; 82607; 82728; 82746; 82805; 82962; 83036; 83540; 83550; 83605; 83735; 84100; 84134; 84145; 84439; 84443; 84481; 86376; 92523; 92610; 93005; 93970; 94640; 97110; 97116; 97162; 97166; 97530; 97535; A4565; A6261; C9113; G0515; J0696; J0885; J1650; J2060; J2405; J2765; J7030; J7040; J7060; J7620